=== PATIENT | female | born 1960 | race African-American/Black ===

== ENCOUNTER 2025-01-01 11:14 | Emergency (ER) | payer MEDICAID ==
[~2025-01-01] VITALS: Ht 160 cm; Wt 70.0 kg
[~2025-01-01 11:14] MED LIST: CYCL10TA21 MT; LIDO76.56 TP
[2025-01-01 11:21] VITALS: O2SAT 99
[2025-01-01] MEDS: IBUPROFEN 600MG TABLET PO ONE (12:10)
[2025-01-01] MEDS ORDERED: IBUP-1455 MT (13:22)
[2025-01-01 14:20] VITALS: BP 178/91; PULSE 72; RESP 16; TEMP 36.8; O2SAT 100
== END 2025-01-01 14:22 | disposition home or self-care (01) ==
LOC: ER 11:14
DX: M25.512 Pain in left shoulder (principal); Z98.890 Other specified postprocedural states
CPT/HCPCS: 73030; 99283; Z7610 ×2